=== PATIENT | female | born 1995 | race Caucasian/White ===

== ENCOUNTER 2017-01-08 08:02 | Emergency (ER) | payer OTHER ==
[~2017-01-08] VITALS: Ht 162.6 cm; Wt 68.1 kg
[2017-01-08 10:27] VITALS: BP 110/65
== END 2017-01-08 10:27 | disposition home or self-care (01) ==
LOC: M ED 08:02
DX: H53.9 Unspecified visual disturbance (principal); Z98.890 Other specified postprocedural states; Z88.5 Allergy status to narcotic agent